=== PATIENT | female | born 1960 | race Hispanic/Latino ===

== ENCOUNTER → 2017-07-03 | Day surgery (SDC) | payer OTHER, MEDICARE ==
[2017-06-29 13:41] LABS: ANION GAP 9.9 mmol/L (8-16); CALCIUM 9.6 mg/dL (8.4-10.2); CREATININE, SERUM 1.25 mg/dL (0.57-1.11); POTASSIUM 4.9 mmol/L (3.5-5.1)
--- NOTE | 2017-06-29 13:49 | Diagnostic Imaging Report ---
PROCEDURE: Frontal and lateral views of the chest. COMPARISON: Chest 2 views 06/28/2015. INDICATIONS: PRE OPERATIVE CHEST X-RAY FOR FOOT SURGERY FINDINGS: Lines/tubes: None. Lungs: The lungs are well inflated and clear. There is no evidence of pneumonia or pulmonary edema. Pleura: There is no pleural effusion or pneumothorax. Heart and mediastinum: The heart and the mediastinum are normal. Bones: No acute bony abnormality. Degenerative changes of the thoracic spine. IMPRESSION: No acute radiographic abnormality. Dictated by: Martir Benavides M.D. on 06/29/2017 at 13:50 Electronically approved by: Martir Benavides M.D. on 06/29/2017 at 13:50
[~2017-07-03] MED LIST: ACIDOPHILUS LA1 EACH; ATORVASTATIN CA40 MG PO; BUPIVACAINE HCL 0.5% INJ 30 ML VIAL INJ ONE; CEFAZOLIN SOD 2 GM/D5W 50ML 50 ML IV ONE; DEXAMETHASONE SOD PHOS INJ 4 MG/ML VIAL ONE; EPHEDRINE SULFATE INJ 50 MG/10 ML SYR ONE; FENTANYL CITRATE/PF 100MCG/2 ML INJ ONE; GABAPENTIN300 MG PO; GLIMEPIRIDE1 MG PO; GLYCOPYRROLATE INJ 1MG/ 5 ML SYR ONE; HYDRALAZINE HCL 20 MG/ML VIAL ONE; KETOROLAC TROMETHAMINE 30 MG/ML VIAL ONE; LEVAQUIN500 MG PO; LEVOTHYROXINE50 MCG PO; LIDOCAINE HCL 2% JELLY 5 ML TUBE ONE; LIDOCAINE HCL 2% LOCAL INJ 5 ML SDV VIAL INJ ONE; MELOXICAM15 MG PO; METOPROLOL TART25 MG PO; MIDAZOLAM HCL 2 MG/2 ML VIAL ONE; MORPHINE SULFATE 2 MG/ML SYR ONE; MORPHINE SULFATE INJ 10 MG/ML ONE; NEOSTIGMINE 1 MG/ML 10ML VIAL ONE; NEXIUM40 MG PO; ONDANSETRON HCL INJ 2 MG/ML VIAL ONE; PROPOFOL IV EMULSION 10 MG/ML 20 ML VIAL ONE; QUESTRAN PACKET4 GM PO; SERTRALINE HCL50 MG PO; SEVOFLURANE INHAL SOLN 250 ML PEN BTL ONE; TIZANIDINE HCL2 M1 PO; TOPIRAMATE25 MG PO; ULTRAM 50MG50 MG PO; ZOFRAN ODT4 MG
--- OUTSIDE RECORDS SUMMARY | 2017-07-03 06:45 | XMS REPORT ---
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 Allergies, Adverse Reactions, Alerts This patient has no known allergies or adverse reactions. Medications This patient has no known medications. Results Test Description Test Time Test Comments Text Results Atomic Results Result Comments CHEST 2 VIEWS [place] [address] Patient Name: VIVIANA FLORES MR #: [id number] : 1960 Age/Sex: 57/F Req #: [id number] Adm Physician: Ordered by: GAYLE FRANKS DPM Report #: [id number] Location: OR Room/Bed: Procedure: [id number] DX/CHEST 2 VIEWS Exam Date: 06/29/17 Exam Time: 1320 REPORT STATUS: Signed PROCEDURE: Frontal and lateral views of the chest. COMPARISON: Chest 2 views 06/28/2015. INDICATIONS: PRE OPERATIVE CHEST X-RAY FOR FOOT SURGERY FINDINGS: Lines/tubes: None. Lungs: The lungs are well inflated and clear. There is no evidence of pneumonia or pulmonary edema. Pleura: There is no pleural effusion or pneumothorax. Heart and mediastinum: The heart and the mediastinum are normal. Bones: No acute bony abnormality. Degenerative changes of the thoracic spine. IMPRESSION: No acute radiographic abnormality. Dictated by: Dannie Benavides M.D. on 2017 at 13:50 Electronically approved by: Dannie Benavides M.D. on 2017 at 13:50 Dictated By: DANNIE BENAVIDES MD [id number] Transcribed By: DOUG on 06/29/17 1350 COPY TO: GAYLE FRANKS DPM
--- NOTE | 2017-07-03 15:31 | Operative Report ---
DATE OF PROCEDURE: July 03, 2017 PREOPERATIVE DIAGNOSIS 1. 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 2. Plantarflexed 2nd metatarsal right foot. 3. Hammertoe 2nd digit right foot. ANESTHESIA: General endotracheal. HEMOSTASIS: A right thigh tourniquet at 350 mmHg. PROCEDURE IN DETAIL: The patient was taken to the operating room in a mildly sedated state and placed upon the operating table in supine position. Following induction of general anesthetic, the right lower extremity was elevated to 60 degrees to exsanguinate before inflating the pneumatic thigh tourniquet to 350 mmHg to create hemostasis. The right lower extremity was placed upon the operating table prior to performing the following procedure. Procedure #1 was a modified Dameon bunionectomy. An approximately 6-cm dorsal linear incision was made across the dorsal medial aspect of the 1st metatarsophalangeal joint of the right foot. The incision was deepened via sharp and blunt dissection down to the level of the dorsal capsular structure. Care was taken to identify and retract all vital structures encountered. The head of the 1st metatarsal was delivered into the surgical site and remodeled utilizing the oscillating saw. The head of the 1st metatarsal was delivered into the surgical site, and a remodeling with excision of cystic lesion on the medial aspect was performed. This having been accomplished, attention was directed to the 1st intermetatarsal space where the conjoined tendon of the adductor hallucis muscle was identified and tenotomized to allow for a more rectus positioning of the hallux on the 1st metatarsal. Attention was directed back to the medial aspect of the 1st metatarsal where a ktchnvf-fzw-anspqxq V osteotomy was placed with the apex distally and base proximally to allow for relative shift lateralward of the head of the more proximal segment, which was then impacted and stabilized with 2 cortical bone screws. The area was further remodeled utilizing an oscillating saw with a rotary bur, irrigated with copious amounts of sterile saline solution. Deep closure was 3-0 Vicryl, subcutaneous closure with 4-0 Vicryl, and skin closure 4-0 nylon. Attention was then directed to the 2nd metatarsal for a Jaison osteotomy. The 2nd metatarsal was noted to be plantarflexed. A linear longitudinal incision was made overlying the dorsal aspect of the 2nd metatarsal head. The incision was deepened via sharp and blunt dissection down to the level of the dorsal 2nd metatarsal. A bdftopz-qyq-xcoqmit slide osteotomy was placed from dorsal distal to plantar proximal as to allow for a reduction or a retraction of the head on the more proximal segment, which was then impacted and stabilized with K-wire and a 2.0 popoff screw. This having been accomplished, the distal aspect of the head was further remodeled, irrigated with copious amounts of sterile saline solution. Deep closure was 3-0 Vicryl. Skin closure was 4-0 nylon. Attention was then directed to the 2nd digit where an arthrodesis was performed. A linear longitudinal incision was made overlying the dorsal aspect of the 2nd digit proximal phalangeal joint. The head of the proximal phalanx was delivered into the surgical site and remodeled utilizing a cup and cone reamer. The distal aspect was similarly remodeled. So, with excellent apposition now noted, a Kloudco digital implant was inserted distally and this was a screw-in type device which then popped into the head proximally to form a rigid foundation and fixation with the appropriate compression. The area was irrigated with copious amounts of sterile saline solution. Positioning was verified of all pinnings and bone cuts utilizing a C-arm. The area was irrigated with copious amounts of sterile saline solution. Deep closure was 3-0 Vicryl, subcutaneous closure 4-0 Vicryl and skin closure 4-0 nylon. The areas of surgery were then blocked with 0.5 Marcaine and Decadron [place]. Release of the pneumatic thigh tourniquet showed a normal hyperemic flush to all digits of the right foot. Arthrodesis, Jaison osteotomy and Dameon bunionectomy having been performed, the appropriate mildly compressive dressings were applied and the patient left the operating room with vital signs stable, in apparent satisfactory condition, having tolerated both anesthetic and procedure very well. See me within 1 week postoperatively. Job#: [id number] EV
== END | disposition home or self-care (01) ==
LOC: OR 06:42
PROVIDERS: ATTEND Podiatrist Foot Surgery
DX: M20.11 Hallux valgus (acquired), right foot (principal); M21.961 Unspecified acquired deformity of right lower leg; M20.41 Other hammer toe(s) (acquired), right foot; F32.9 Major depressive disorder, single episode, unspecified; E11.9 Type 2 diabetes mellitus without complications; Z79.84 Long term (current) use of oral hypoglycemic drugs; G47.33 Obstructive sleep apnea (adult) (pediatric); M54.12 Radiculopathy, cervical region; M54.5 Low back pain; E78.5 Hyperlipidemia, unspecified; K21.9 Gastro-esophageal reflux disease without esophagitis; F17.210 Nicotine dependence, cigarettes, uncomplicated; Z01.810 Encounter for preprocedural cardiovascular examination; Z01.812 Encounter for preprocedural laboratory examination; Z01.818 Encounter for other preprocedural examination
CPT/HCPCS: 28285; 28296; 28308; 36415 ×2; 71046; 76001; 80048; 82948; 93005; J0360; J1100; J1885; J2001 ×2; J2250; J2270 ×2; J2405; J2710